=== PATIENT | female | born 1970 | race Caucasian/White ===

== ENCOUNTER → 2021-01-10 07:30 | Outpatient (CLI) | payer BC, SELFPAY ==
--- NOTE | ~2021-01-10 | MM_ITS ---
EXAMINATION: MM screening [facility] BI w janki HISTORY: Screening TECHNIQUE: Craniocaudal and mediolateral oblique 3-D tomosynthesis images were obtained and synthetic 2-D images were generated. CAD analysis was submitted and interpreted. COMPARISON: Comparison to multiple prior studies sequentially, with oldest reviewed study dated 06/28. BREAST PARENCHYMAL COMPOSITION: Breast composed of scattered areas of fibroglandular density. FINDINGS: There is no evidence of suspicious mass, calcification, or architectural distortion to sugg est malignancy in either breast. There has been no suspicious interval change. IMPRESSION: 1. No mammographic evidence of malignancy. 2. Recommend routine screening mammography in one year. BI-RADS Category 1: Negative Reviewed, dictated and finalized at location A.
== END ==
PROVIDERS: Visit Provider Nurse Practitioner Obstetrics & Gynecology
DX: Z12.31 Encounter for screening mammogram for malignant neoplasm of breast (principal)
CPT/HCPCS: 77063; 77067

== ENCOUNTER → 2022-07-07 15:30 | Outpatient (CLI) | payer BC, SELFPAY ==
--- NOTE | ~2022-07-07 | MM_ITS ---
EXAMINATION: MM screening [facility] BI w janki HISTORY: Screening mammogram TECHNIQUE: Craniocaudal and mediolateral oblique 3-D tomosynthesis images were obtained and synthetic 2-D images were generated. CAD analysis was submitted and interpreted. COMPARISON: 01/10/2021, 07/26/2018, 07/05/2013, 06/28/2013 BREAST PARENCHYMAL COMPOSITION: There are scattered areas of fibroglandular density. FINDINGS: No suspicious mass, calcification, or architectural distortion are identified in either adyana ast to suggest malignancy. There has been no suspicious interval change. IMPRESSION: 1. No mammographic evidence of malignancy. 2. Recommend routine screening mammography in one year. BI-RADS Category 1: Negative Reviewed, dictated and finalized at location A.
== END ==
PROVIDERS: PCP Nurse Practitioner Obstetrics & Gynecology; Visit Provider Nurse Practitioner Obstetrics & Gynecology
DX: Z12.31 Encounter for screening mammogram for malignant neoplasm of breast (principal)
CPT/HCPCS: 77063; 77067

== ENCOUNTER 2024-04-29 08:28 | Outpatient (CLI) | payer BC, SELFPAY ==
--- NOTE | ~2024-04-29 | MM_ITS ---
EXAMINATION: MM screening [facility] BI w janki HISTORY: Screening TECHNIQUE: Craniocaudal and mediolateral oblique 3-D tomosynthesis images were obtained and synthetic 2-D images were generated. CAD analysis was submitted and interpreted. COMPARISON: Comparison to multiple prior studies sequentially, with oldest reviewed study dated 07/26. BREAST PARENCHYMAL COMPOSITION: Not dense: There are scattered areas of fibroglandular density. FINDINGS: There is no evidence of suspicious mass, calcification, or architectural distortion to sugg est malignancy in either breast. There has been no suspicious interval change. IMPRESSION: 1. No mammographic evidence of malignancy. 2. Recommend routine screening mammography in one year. BI-RADS Category 1: Negative Reviewed, dictated and finalized at location L. SOFTWARE DEVELOPER
--- OUTSIDE RECORDS SUMMARY | 2024-04-29 08:44 | XMS_ITS | Encounter Summary ---
Author Organization [facility] Address 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
--- OUTSIDE RECORDS SUMMARY | 2024-04-29 08:44 | XMS_ITS | Encounter Summary ---
Author Organization [facility] Address [address] [place] [address] Care Team Providers Care Recruiting Assistant Name Role Phone Unavailable Primary Care Provider Unavailabl e Encounter Details Date Type Department Care Team (Late st Contact Info) Description 07/23/1998 Outpatient Historical [facility] BANDAGE MA[facility]ER - [facility] [id number] [place] [address] Win Gonzalez MD [id number] [address] Social History Tobacco Use Types Packs/Day Years Used Date Smoking Tobacco: Never Assessed Comments Unknown Sex and Gender Information Value Date Recorded Sex Assigned at Not on file 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
--- OUTSIDE RECORDS SUMMARY | 2024-04-29 08:45 | XMS_ITS | Clinical Summary ---
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
--- OUTSIDE RECORDS SUMMARY | 2024-04-29 08:45 | XMS_ITS | Data Portability ---
Author Organization 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 Patient will come back in a year unless there are new symptoms. Not available 06/12/2020 10:47:08 09/10/2021 09/10/2021 Annual gynecological exam performed. Patient will come back in a year unless there are new symptoms. Not available 09/10/2021 11:00:03 04/15/2023 04/15/2023 Annual gynecological exam performed. Patient will come back in a year unless there are new symptoms. [email or web address] Not available 04/15/2023 09:49:34 Plan of Treatment Reminders Order Date Submit Date Provider Last Modified By Organization Details Last Modified Time Details Appointments None recorded. Lab None recorded. Referral None recorded. Procedures None recorded. Surgeries None recorded. Imaging MAMMO, screening, bilateral 2023 024 [email or web address] [facility], [address], [address], [place], [address], 17:32:38 Medication Orders None recorded. Patient TargetsNo targets recorded. Patient InstructionsNo instructions recorded. Reason for Referral None Reported. 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 Locat ion: [place] Patho loggenesis Recei marilou: 06/14 0912 First Scree n: Chelsie Meredith Speci men: Scree carine Pap - Image d, Cervi x STATE MENT OF ADEQU ACY: Satis facto ry for evalu ation Trans forma tion zone compo nent prese nt FINAL DIAGN OSIS: Negat sonja for Squam ous Intra epith elial Lesio n Elect phyllis desai chadna d by Chelsie Meredith on 021 at 3:40 PM ----- ----- ----- ----- ----- ----- ----- ----- ----- ----- ----- ----- ----- ----- ----- ----- ----- ---- HPV RESUL TS: HPV mRNA E6/E7 : No HPV mRNA Detec holly NOTE: This high risk HPV mRNA assay detec ts fourt een high- risk HPV types (16, 18, 31, 33, 35, 39, 45, 51, 52, 56, 58, 59, 66, 68) witho ut diffe renti ation . CHART ABLE COMME NT: Note: This speci men was revie wed by a Cytot echno logis t and/o r Patho logis t (as indic ated in this repor t) after evalu ation using the Thinp rep Imagi ng Syste m. CLINI [facility] INFOR MATIO N: Menst rual Statu s: LMP (if appli cable ): Clini amrquis Histo ry/Pr eviou s Pap: Type of Neopl brian (if appli cable ): Other Histo ry: Hormo glory (if appli cable ): PAP EDUCA TIMOTHY L NOTE: The Pap Test is a scree carine test with an inher ent false negat sonja rate. Liqui d-bas e sampl ing may decre ase, but will not elimi koko, false negat sonja resul ts. A negat sonja resul t does not precl ude the prese nce and/o r devel opmen t of disea se, since the prese nce of abnor mal cells in the sampl e depen ds on the locat ion of the lesio n and sampl ing techn ique. Gia nued regul ar scree carine is the best metho d of cance r preve ntion . If repor holly cytol ogic findi ng do not corre late with physi marquis and/o r histo rical findi ngs, furth er inves tigat ion is recom kendrick d, as clini mounika oviedo nted. Not Available 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 Infla mmato ry cell orta es (incl udes typic al repai r). Elect phyllis desai chanda d by Jason Cortes MD on 2021 at 2:29 PM ----- ----- ----- ----- ----- ----- ----- ----- ----- ----- ----- ----- ----- ----- ----- ----- ----- ---- HPV RESUL TS: HPV mRNA E6/E7 : No HPV mRNA Detec holly NOTE: This high risk HPV mRNA assay detec ts fourt een high- risk HPV types (16, 18, 31, 33, 35, 39, 45, 51, 52, 56, 58, 59, 66, 68) witho ut diffe renti ation . COMME NT: Note: This speci men was revie wed by a Cytot echno logis t and/o r Patho logis t (as indic ated in this repor t) after evalu ation using the Thinp rep Imagi ng Syste m. CLINI MAR[facility] INFOR MATIO N: Menst rual Statu s: LMP (if appli cable ): 2021 Clini marquis Histo ry/Pr eviou s Pap: Type of Neopl brian (if appli cable ): Signi fican t Clini marquis Findi ngs: Other Histo ry: Hormo glory (if appli cable ): PAP EDUCA TIMOTHY L NOTE: The Pap Test is a scree carine test with an inher ent false negat sonja rate. Liqui d-bas ed sampl ing may decre ase, but will not elimi koko, false negat sonja resul ts. A negat sonja resul t does not precl ude the prese nce and/o r devel opmen t of disea se, since the prese nce of abnor mal cells in the sampl e depen ds on the locat ion of the lesio n and sampl ing techn ique. Gia nued regul ar scree carine is the best metho d of cance r preve ntion . If repor holly cytol ogic findi ng do not corre late with physi marquis and/o r histo rical findi ngs, fur er inves tigat ion is recom kendrick d, as clini mounika oviedo nted. 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 Elect phyllis desai chanda d by Chelsie Meredith on 024 at 2:05 PM ----- ----- ----- ----- ----- ----- ----- ----- ----- ----- ----- ----- ----- ----- ----- ----- ----- ---- HPV RESUL TS: HPV mRNA E6/E7 : No HPV mRNA Detec holly NOTE: This high risk HPV mRNA assay detec ts fourt een high- risk HPV types (16, 18, 31, 33, 35, 39, 45, 51, 52, 56, 58, 59, 66, 68) witho ut diffe renti ation . COMME NT: This speci men was revie wed by a Cytot echno logis t and/o r Patho logis t (as indic ated in this repor t) after evalu ation using the Thinp rep Imagi ng Syste m. CLINI MARQU[facility] INFOR MATIO N: Menst rual Statu s: LMP (if appli cable ): Clini marquis Histo ry/Pr eviou s Pap: Type of Neopl brian (if appli cable ): Signi fican t Clini marquis Findi ngs: Other Histo ry: Hormo glory (if appli cable ): PAP EDUCA TIMOTHY L NOTE: The Pap Test is a scree carine test with an inher ent false negat sonja rate. Liqui d-bas ed sampl ing may decre ase, but will not elimi koko, false negat sonja resul ts. A negat sonja resul t does not precl ude the prese nce and/o r devel opmen t of disea se, since the prese nce of abnor mal cells in the sampl e depen ds on the locat ion of the lesio n and sampl ing techn ique. Gia nued regul ar scree cairne is the best metho d of cance r preve ntion . If repor holly cytol ogic findi ng do not corre late with physi marquis and/o r histo rical findi ngs, furth er inves tigat ion is recom kendrick d, as clini mounika warra nted. Not Available [facility] (Lab) [address], [place], [address], 04/17/2023 15:09:27 01/11/20 21 01/10/2021 MAMMO , scree carine, digit al, bilat eral No observ ation record ed. mini [facility] [address], [place], [address], 01/18/2021 14:15:58 Result Notes Documentation Provider Name and Address Organization Details Recorded Time Mammo, Screening, Digital, Bilateral : ok to file nl no pp la,rma L Danae dumas [place] - [facility] 01/18/2021 14:15:58 Problems Name Problem SNOMED Code Status Onset Date Resolution Date Notes Provider Name and Address Organization Details Recorded Time Adult health examinat ion Completed 201406/12/2020 Routine general medical examinat ion at a [facility] facility ;Practic e ID: 0001 Renae dumas, [facility] 10:46:31 Speciali zed medical examinat ion Completed 201406/12/2020 Routine gynecolo gical examinat ion;Prac piero ID: 0001 Renae dumas, [facility] 10:46:38 Screenin g for malignan t neoplasm of cervix Completed 201406/12/2020 SCREEN MAL NEOP-CER VIX;Prac piero ID: 0001 Renae dumas, [facility] 10:46:34 Screenin g for malignan t neoplasm of rectum Completed 201406/12/2020 Screenin g for malignan t neoplasm s of the rectum;P ractice ID: 0001 Renae Martin [facility], [facility] 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 04/06/202 1 10:46:32 Problem Notes None recorded. Procedures Surgical History Date Name Laterality Status Provider Name and Address Organization Details Recorded Time 3 Date of Last Mammogram completed [facility] 04/15/2023 09:52:14 2 Date of Last Colonoscopy completed [facility] 04/15/2023 09:50:46 2 Date of Last Pap Smear completed [facility] 04/15/2023 09:50:20 Imaging Results Imaging Date Name Status LastModified by Organiz ation Details LastModified Time 01/10/2021 MAMMO, screening, digital, bilateral completed [facility] [address], [place], [address], 01/18/2021 14:15:58 Procedure Notes None recorded. Medical Equipment None Reported. Allergies Allergen ID Allergen Name Allergen Category Reaction Reaction Severity Criticality Documentation Date Start Date Code Code System Note Provider Name and Address Organization Details Recorded Time 64494 Product containin g penicilli n (product) medicatio n Not available Not available Not available 02/24/2020 83479 8001 SNOMED Renae Brocton [facility] 1 10:47:18 Medications Name Sig Start Date Stop Date Status Note LastModified by Organization Details LastModified Time clindamycin HCl 300 mg capsule TAKE 1 CAPSULE BY MOUTH THREE TIMES DAILY FOR 10 DAYS 09/10 completed Not Available Not Available Not Available Vitals Date Recorded Body height Body mass index (BMI) Body weight Systolic blood pressure Diastolic blood pressure Provider Name and Address Organization Details Last Updated DateTime 06/13/2020 167.64 cm 34.7 kg/m2 07975.36 g 128 mm[Hg] 82 mm[Hg] Renae Seayan [facility] 1 14:08:16 Date Recorded Body height Body mass index (BMI) Body weight Provider Name and Address Organization Details Last Updated DateTime 09/10/2021 167.64 cm 31.8 kg/m2 86789.7 g Azul Garcia [facility] 09/10/2021 11:00:55 Date Recorded Systolic blood pressure Diastolic blood pressure Provider Name and Address Organization Details Last Updated DateTime 09/10/2021 122 mm[Hg] 74 mm[Hg] Kathy Cota, [facility] [address], [place], [address], [facility] 09/10/2021 11:07:40 Date Recorded Body height Body mass index (BMI) Body weight Systolic blood pressure Diastolic blood pressure Provider Name and Address Organization Details Last Updated DateTime 04/15/2023 167.64 cm 34.5 kg/m2 93773.77 g 136 mm[Hg] 95 mm[Hg] Lissette Woodruff [facility] 09:49:54 Date Recorded Systolic blood pressure Diastolic blood pressure Provider Name and Address Organization Details Last Updated DateTime 04/15/2023 118 mm[Hg] 78 mm[Hg] Kathy Cota, [facility] [address], [place], [address] 04/15/2023 10:35:53 Social History Question Answer Notes LastModified by Organizat ion Details LastModified Time Tobacco Smoking Status Never Smoker Azul Garcia [facility], [facility] 09/10/2021 11:01:15 Do You Have An Advance Directive? No [email or web address] Information not available 06/13/2020 What Is Your Level Of Alcohol Consumption? Occasional Information not available 06/13/2020 How Many Years Have You Consumed Alcohol? 20 [email or web address] Information not available 06/13/2020 Are You Blind Or Do You Have Difficulty Seeing? No [email or web address] Information not available 06/13/2020 What Is Your Level Of Caffeine Consumption? Occasional Information not available 09/10/2021 How Much Tobacco Do You Chew? None [email or web address] Information not available 06/13/2020 In The 14 Days Before Symptom Onset, Have You Had Close Contact With A Laboratory-confir med COVID-19 While That Case Was Ill? No [email or web address] Information not available 06/13/2020 In The 14 Days Before Symptom Onset, Have You Had Close Contact With A Person Who Is Under Investigation For COVID-19 While That Person Was Ill? No [email or web address] Information not available 06/13/2020 Have You Been To An Area Known To Be High Risk For COVID-19? No [email or web address] Information not available 06/13/2020 Are You Deaf Or Do You Have Serious Difficulty Hearing? No [email or web address] Information not available 06/13/2020 What Type Of Diet Are You Following? REGULAR [email or web address] Information not available 06/13/2020 What Is The Highest Grade Or Level Of School You Have Completed Or The Highest Degree You Have Received? 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 Yes Information not available 06/13/2020 Do You Use Protection During Sex? No [email or web address] Information not available 06/13/2020 Do You Use Your Seat Belt Or Car Seat Routinely? Yes [email or web address] Information not available 06/13/2020 Do You Have Smoke And Carbon Monoxide Detectors In Your Home? Yes [email or web address] Information not available 06/13/2020 How Much Tobacco Do You Smoke? No [email or web address] Information not available 06/13/2020 Do You Feel Stressed (tense, Restless, Nervous, Or Anxious, Or Unable To Sleep At Night)? [id number] [email or web address] Information not available 06/13/2020 Do You Use Any Illicit Or Recreational Drugs? No Information not available 06/13/2020 Do You Use Sunscreen Routinely? Yes [email or web address] Information not available 06/13/2020 Have You Used IV Drugs? No [email or web address] Information not available 06/13/2020 Sex: Unknown Functional Status Question Answer Note LastModified by Organization D etails LastModified Time Are you able to walk? YESWOREST [email or web address] Information not available 06/13/2020 What is your exercise level? Moderate [email or web address] Information not available 06/13/2020 Mental Status None recorded. Family History Relationship Description Onset Age of this Age Resolved Age Notes LastModified by Organization Details LastModified Time Brother Asthma [email or web address] Not available 06/12/2020 10:51:36 Notes:Mother: prolapsed uter us Medical History Condition Response Allergies (Food, seasonal, environmental ) N Other N Breast Cancer N Drug/Latex Allergies/Reactions N Blood Transfusion N Lung Disease N Dermatologic Disorders N Defects or Inherited Disease N Breast Problem N Gestational Diabetes N Hematologic disorders N Anesthesia Complications N History of STI N Deep Vein Thrombosis N Polycystic ovary syndrome N Anxiety Disorder N Autoimmune disease N Arthritis N Polyps N Infertility N History of abnormal pap N Acid Reflux (GERD) N Cancer N Varicosities N Stroke N Neurologic/Epilepsy N Endometriosis N High Cholesterol N Fibromyalgia N Headaches N Kidney Disease N Heart Problems N Kidney or Bladder Problems N Thyroid Problems N GI Problems N Eating Disorder N Anemia N Art (IVF or FET) N Psychiatric Illness N Ovarian Cancer N Diabetes N Pulmonary (TB, Asthma) N Hepatitis/Liver Disease N No Past Medical History Y Eczema N Urinary Tract Infection N Abuse/Domestic Violence N Asthma N Trauma/Violence N Depression/ depression N Heart Disease N Pre-Eclampsia N Hypertension N Osteoporosis N Thrombophilias N Gynecological History Statement/Question Response Abnormal Pap N Flow Heavy Date of Last Mammogram 04/09/2022 Date of LMP 02/20/2023 N On BCP's at Conception? N STIs/STDs N Was last menstrual period normal N HPV Vaccine N Duration of Flow (days) 7 Current Control Method Partner Vas ectomy Are cycles usually normal N Date of Last Colonoscopy 10/03/2021 Sexually Active? Y None Menses Monthly N Age of first menstrual cycle 14 Date of Last Pap Smear 09/10/2021 Sexual Problems? N LMP Approximate Desired Control Method None N Obstetrics History GPAL:G 2 P 2 0 0 2 Type Value Full Term 2 Living 2 Total 2 Past Encounters Encounter ID Performer Location Encounter Start Date Encounter Closed Date Diagnosis/Indication Diagnosis SNOMED-CT Code Diagnosis ICD10 Code Diagnosis Note [id number] Kathy Cota [facility] [address] [address] 06/13/2020 13:58:26 06/13/2020 16:03:14 Gynecologic examination [id number] Z01.419 Suggested Calcium with Vitamin D 1200-1500m g daily. Patient advised to get an annual flu shot in the fall and she could obtain at [facility] or [facility] care clinic. Also to obtain TDap vaccinatio n if you have not had one in the last 10 years. Recommend yearly mammograms . Encouraged monthly self breast exams. Encourage safe sexual practices, to use condoms and limit partners if not already in a monogamous relationsh ip. Engage in daily exercise of low impact aerobic exercise 45-60 minutes 4-5 times weekly. Avoid tobacco and illicit drugs as well as using moderation with alcohol intake less than 1-2 8 oz beverages daily. This lifestyle behavior pattern will lead to less health conditions and longer life span. If BMI greater than 25 weight watchers or dietary consult advised. All questions have been answered. Patient appears to understand informatio n, but if you have any questions please call or respond to this email. Pap/hpv sent STD declined Mongamous hx of abn pap early in Colon-Seei ng PCP Mammo ordered Suggestion s for weight loss: Weight watchers, Peloton peggy increase resistance training. [id number] Kathy Cota , [facility] [address] [address] 09/10/2021 10:32:44 09/10/2021 11:40:02 Gynecologic examination [id number] Z01.419 Suggested Calcium with Vitamin D 1200-1500m g daily. Patient advised to get an annual flu shot in the fall and she could obtain at [facility] or [facility] care clinic. Also to obtain TDap vaccinatio n if you have not had one in the last 10 years. Recommend yearly mammograms . Encouraged monthly self breast exams. Encourage safe sexual practices, to use condoms and limit partners if not already in a monogamous relationsh ip. Engage in daily exercise of low impact aerobic exercise 45-60 minutes 4-5 times weekly. Avoid tobacco and illicit drugs as well as using moderation with alcohol intake less than 1-2 8 oz beverages daily. This lifestyle behavior pattern will lead to less health conditions and longer life span. If BMI greater than 25 weight watchers or dietary consult advised. All questions have been answered. Patient appears to understand informatio n, but if you have any questions please call or respond to this email. Pap/hpv sentSTD Screen declinedGe netic Screen discussedC olon Screen ordered cologuardD exa Screen naRoutine Labs UTD PCPMammo ordered [id number] [facility] [address] [address] 04/15/2023 09:31:46 04/15/2023 10:21:06 Gynecologic examination [id number] Z01.419 Z11.51 Suggested Calcium with Vitamin D 1200-1500m g daily. Patient advised to get an annual flu shot in the fall and she could obtain at [facility] or [facility] clinic. Also to obtain TDap vaccinatio n if you have not had one in the last 10 years. Recommend yearly mammograms . Encouraged monthly self breast exams. Encourage safe sexual practices, to use condoms and limit partners if not already in a monogamous relationsh ip. Engage in daily exercise of low impact aerobic exercise 45-60 minutes 4-5 times weekly. Avoid tobacco and illicit drugs as well as using moderation with alcohol intake less than 1-2 8 oz beverages daily. This lifestyle behavior pattern will lead to less health conditions and longer life span. If BMI greater than 25 weight watchers or dietary consult advised. All questions have been answered. Patient appears to understand informatio n, but if you have any questions please call or respond to this email. Pap/hpv sentSTD Screen declinedGe netic Screen discussedC olon Screen ordered cologuardD exa Screen naRoutine Labs UTD PCPMammo ordered Screening mammography 24 [id number] Z12.31 Health Concerns Section Related Observation LastModified by Organization Detai ls LastModified Time None Recorded Concern Status LastModified by Organization Details LastModified Time None Recorded Advance Directives Directive N: Payers Encounter Date Sequence Insurance Name Policy Number Policy Finch Covered Member ID Finch Member ID Guarantor Name 06/13/2020 1 [place] [id number] Bhavna Hogan James [id number] Bhavna Hogan James 09/10/2021 1 [place] [id number] Bhavna Hogan James [id number] Bhavna Hogan James 04/15/2023 1 [place] [id number] Bhavna Hogan James [id number] Bhavna M James Notes Date Note Type Note Provider Name and Address Organization Details Recorded Time 06/13/2020 text/html Annual GYNReport ed bypatient.History: no gynecologic complaints Menstrual cycle:Normal menses Urinary symptoms:No hematuria; No incontinence Vulva:No genital lesion Vagina:Normal vaginal discharge Breast:No breast pain; No breast lump; No nipple discharge Current Contraception:Sheridan gamous relationship; Partner had vasectomy Sexual complaints:No sexual complaints; No pain during intercourse; Normal libido Menopausal Symptoms:No menopausal symptoms; Normal vaginal lubrication Psychological symptoms:No depression; No anxiety; No PMDD Preventive measures:Encourage self breast examination; Encourage regular exercise; Encourage no tobacco use; Encourage regular mammograms starting age 40; Needs to schedule mammogram; Needs to schedule colonoscopy (Seeing PCP) [facility] [address], [place], [address], [facility] 06/13/2020 14:53:48 09/10/2021 text/html Annual GYNReport ed bypatient.History: no gynecologic complaints Menstrual cycle:Normal menses Urinary symptoms:No hematuria; No incontinence Vulva:No genital lesion Vagina:Normal vaginal discharge Breast:No breast pain; No breast lump; No nipple discharge Current Contraception:Part ner had vasectomy Sexual complaints:No sexual complaints; No pain during intercourse; Normal libido Menopausal Symptoms:No menopausal symptoms; Normal vaginal lubrication Psychological symptoms:No depression; No anxiety; No PMDD Preventive measures:Encourage self breast examination; Encourage regular exercise; Encourage no tobacco use; Encourage regular mammograms starting age 40; Needs to schedule mammogram; Needs to schedule colonoscopy [facility] [address], [place], [address], [facility] 09/10/2021 11:18:00 04/15/2023 text/html Annual GYNReport ed bypatient.Menstrua l cycle:Perimenopaus al Urinary symptoms:No hematuria; No incontinence Vulva:No genital lesion Vagina:Normal vaginal discharge Breast:No breast pain; No breast lump; No nipple discharge Current Contraception:Sati sfied with current contraception; Partner had vasectomy Sexual complaints:No sexual complaints; No pain during intercourse; Normal libido Menopausal Symptoms:No menopausal symptoms; Normal vaginal lubrication Psychological symptoms:No depression; No anxiety; No PMDD Preventive measures:Encourage self breast examination; Encourage regular exercise; Encourage no tobacco use; Encourage regular mammograms starting age 40; Followed with yearly pap smears; Needs to schedule mammogram; Up to date on colonoscopy screening Kathy Cota, [facility]- [address], [place], [address], [facility] 04/15/2023 10:36:00 OBGyn Episode Ob Episode Information Episode Created Date Number of Fetuses Patient Bloodtype Patient rh Status Prepregnancy Weight lbs Domestic Partner Domestic Partner Phone Father Name Able Bodied Tankerman Status 06/13/19 21 1 CLOSED Fetus Data First Name Last Name Admitted to NICU Weight (g) Sex Living Outcome Pediatric Complications Fetus ID Race Codes Race Delivery Type F [id number] Vaginal Delivery Preet Calculation Initial Preet Date Initial Exam Date Initial Exam Provider Initial Ultrasound Date Last Menstrual Period Date Ultra Sound Weeks Gestation 0 Eighteen To Twenty Week Preet Update Ultra Sound Date Fundal Height At Umbil Quickening Date Ultra Sound Latest Weeks Gestation Final Preet Confirmed By Final Preet Confirmed Date Final Preet Date Ultra Sound Latest Days Gestation 0 0 Menstrual History Last Menstrual Date Menses Monthly On Bcp Conception Prior Menses Frequency Hcg Plus Date Menarche Onset Age Delivery Information Delivery Date Delivery Type Labor Anesthesia Weeks Gestation Incision Type Labor Labor Length Hrs Delivered By Post Complications Tubal Sterilization Discharge Date Comments 2 Discharge Information Feeding Method Contraceptive Method Maternal HG B and HCT Levels Ob Episode Information Episode Created Date Number of Fetuses Patient Bloodtype Patient rh Status Prepregnancy Weight lbs Domestic Partner Domestic Partner Phone Father Name Able Bodied Tankerman Status 06/13/19 21 1 CLOSED Fetus Data First Name Last Name Admitted to NICU Weight (g) Sex Living Outcome Pediatric Complications Fetus ID Race Codes Race Delivery Type F [id number] Vaginal Delivery Preet Calculation Initial Preet Date Initial Exam Date Initial Exam Provider Initial Ultrasound Date Last Menstrual Period Date Ultra Sound Weeks Gestation 0 Eighteen To Twenty Week Preet Update Ultra Sound Date Fundal Height At Umbil Quickening Date Ultra Sound Latest Weeks Gestation Final Preet Confirmed By Final Preet Confirmed Date Final Preet Date Ultra Sound Latest Days Gestation 0 0 Menstrual History Last Menstrual Date Menses Monthly On Bcp Conception Prior Menses Frequency Hcg Plus Date Menarche Onset Age Delivery Information Delivery Date Delivery Type Labor Anesthesia Weeks Gestation Incision Type Labor Labor Length Hrs Delivered By Post Complications Tubal Sterilization Discharge Date Comments 0 Discharge Information Feeding Method Contraceptive Method Maternal HG B and HCT Levels
--- OUTSIDE RECORDS SUMMARY | 2024-04-29 08:45 | XMS_ITS | Encounter Summary ---
Author Organization [facility] Address 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
--- OUTSIDE RECORDS SUMMARY | 2024-04-29 08:45 | XMS_ITS | Encounter Summary ---
Author Organization [facility] Address 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
== END 2024-04-29 08:29 | disposition home or self-care (01) ==
LOC: ANHIMG 08:29
PROVIDERS: PCP Nurse Practitioner Obstetrics & Gynecology; Visit Provider Nurse Practitioner Obstetrics & Gynecology
DX: Z12.31 Encounter for screening mammogram for malignant neoplasm of breast (principal)
CPT/HCPCS: 77063; 77067